=== PATIENT | male | born 1980 | race African-American/Black ===

== ENCOUNTER 2019-09-20 09:20 | Emergency (ER) | payer OTHER ==
[~2019-09-20] VITALS: Ht 177.8 cm; Wt 117.9 kg
[2019-09-20 09:45] VITALS: BP 145/89
[2019-09-20] MEDS ORDERED: methylPREDNISolone SOD SUCC 125 MG/2 ML VL IM ONE (10:15)
== END 2019-09-20 10:46 | disposition home or self-care (01) ==
LOC: ER 09:20
DX: J03.90 Acute tonsillitis, unspecified (principal)
CPT/HCPCS: 71046; 96372; 99283; J2930